=== PATIENT | male | born 1970 | race African-American/Black ===

== ENCOUNTER 2021-03-15 10:42 | Emergency (ER) | payer SELFPAY ==
[~2021-03-15] VITALS: Ht 182.9 cm; Wt 108.9 kg
--- NOTE | 2021-03-15 11:00 | NUR ---
THE PATIENT FROM HOME AND BIBS FOR C/O HEADACHE SINCE THIS AM AND FEELING DIZZY EARLIER. RATES PAIN 6/10. IN ROOM AIR AND DENIES SOB. RESPIRATION REGULAR AND UNLABORED. ATTACHED TO THE MONITOR. WILL CONTINUE TO MONITOR THE PATIENT.
[2021-03-15] MEDS ORDERED: CETI-90 PO (11:09)
[2021-03-15] MEDS ORDERED: AZIT250T PO (11:09)
--- NOTE | 2021-03-15 11:21 | NUR ---
Patient discharged to home in stable condition. Written and verbal after care instructions given. Patient verbalizes understanding of instruction. Left ER in stable condition.
[2021-03-15 11:22] VITALS: BP 141/88
== END 2021-03-15 11:22 | disposition home or self-care (01) ==
LOC: ER 10:48
DX: J32.9 Chronic sinusitis, unspecified (principal); R51.9 Headache, unspecified

== ENCOUNTER 2023-12-06 04:44 | Emergency (ER) | payer OTHER ==
[~2023-12-06] VITALS: Ht 188 cm; Wt 90.7 kg
[~2023-12-06 04:44] MED LIST: AZIT250T PO; CETI-90 PO
[2023-12-06] MEDS: IBUPROFEN 400 MG TABLET PO ONE (05:09)
[2023-12-06] MEDS ORDERED: CYCLOBENZAPRINE 10 MG TABLET ONE (05:09)
[2023-12-06] MEDS: CYCLOBENZAPRINE 10 MG TABLET PO ONE (05:09)
[2023-12-06] MEDS ORDERED: IBUPROFEN 400 MG TABLET ONE (05:09)
[2023-12-06] MEDS ORDERED: CYCL5TAB PO (05:11)
[2023-12-06] MEDS ORDERED: IBUP-1957 PO (05:11)
[2023-12-06 05:20] VITALS: BP 133/101; TEMP 98; O2SAT 98
== END 2023-12-06 05:20 | disposition home or self-care (01) ==
LOC: ER 04:46
DX: M54.50 Low back pain, unspecified (principal)

== ENCOUNTER 2024-01-22 04:12 | Emergency (ER) | payer OTHER ==
[~2024-01-22] VITALS: Ht 182.9 cm; Wt 108.9 kg
[~2024-01-22 04:12] MED LIST changes: +CYCL5TAB PO; +IBUP-1957 PO
[2024-01-22] MEDS ORDERED: PRED50TA PO (05:39)
[2024-01-22] MEDS ORDERED: predniSONE 20 MG TABLET ONE (05:54)
[2024-01-22] MEDS ORDERED: IBUPROFEN 400 MG TABLET ONE (05:55)
[2024-01-22] MEDS: predniSONE 50 MG TABLET PO ONE (06:00)
[2024-01-22] MEDS: IBUPROFEN 400 MG TABLET PO ONE (06:00)
[2024-01-22 06:23] VITALS: BP 136/89; TEMP 98; O2SAT 98
== END 2024-01-22 06:23 | disposition home or self-care (01) ==
LOC: ER 04:14
DX: S83.8X1A Sprain of other specified parts of right knee, initial encounter (principal); Z79.899 Other long term (current) drug therapy; X50.1XXA Overexertion from prolonged static or awkward postures, initial encounter; Y93.89 Activity, other specified; Y92.89 Other specified places as the place of occurrence of the external cause; Y99.8 Other external cause status
CPT/HCPCS: 99284; 73700; J7512

== ENCOUNTER 2024-10-19 19:00 | Emergency (ER) | payer OTHER ==
[~2024-10-19 19:00] MED LIST changes: +PRED50TA PO
== END 2024-10-19 20:41 | disposition home or self-care (01) ==
LOC: ER 19:03
DX: Z53.21 Procedure and treatment not carried out due to patient leaving prior to being seen by health care provider (principal)

== ENCOUNTER 2025-06-05 04:06 | Emergency (ER) | payer OTHER ==
[~2025-06-05] VITALS: Ht 182.9 cm; Wt 122.5 kg
[2025-06-05 05:27] LABS: PLATELET COUNT (AUTO) 348 K/uL (150-450); RED BLOOD CELL COUNT(AUTO) 4.22 MIL/uL (4.5-6.0); RED CELL DISTRIBUTION WIDTH 12.6 % (11.5-15.0); WHITE BLOOD COUNT (AUTO) 6.8 K/uL (4.3-11.0)
[2025-06-05 05:36] LABS: CALCIUM, SERUM 8.4 mg/dL (8.5-10.1); CREATININE 1.0 mg/dL (0.6-1.3); SODIUM SERUM 138 mmol/L (136-145); UREA NITROGEN, BLOOD 8 mg/dL (7-18)
[2025-06-05 05:49] LABS: ALCOHOL, BLOOD < 3 mg/dL (0-10); ASPARTATE AMINOTRANSFERASE 20 U/L (15-37); NT-PRO BNP 37 pg/mL (0-125); TOTAL PROTEIN, SERUM 7.3 g/dL (6.4-8.2)
[2025-06-05 06:11] LABS: APPEARANCE,URINE CLEAR (CLEAR); BLOOD, URINE NEGATIVE Ery/uL (NEGATIVE); LEUKOCYTE ESTERASE ,URINE NEGATIVE (NEGATIVE); NITRITE, URINE NEGATIVE (NEGATIVE); UGLUCOSE NEGATIVE (NEGATIVE)
[2025-06-05 06:13] LABS: AMPHETAMINE, URINE NEGATIVE (NEGATIVE); BARBITURATE, URINE NEGATIVE (NEGATIVE); BENZODIAZEPINE, URINE NEGATIVE (NEGATIVE); CANNABINOID, URINE NEGATIVE (NEGATIVE); COCCAINE, URINE NEGATIVE (NEGATIVE); OPIATE, URINE NEGATIVE (NEGATIVE)
[2025-06-05 06:31] LABS: ADD URINE CULTURE NO; SQUAMOUS EPITHELIAL CELL,UR 0-2 /HPF (None Seen)
[2025-06-05] MEDS ORDERED: LIDOCAINE VISCOUS 2% UD 15 ML UDC ONE (06:56)
[2025-06-05] MEDS ORDERED: MAG HYDROX/AL HYDROX/SIMETH 30 ML UDC ONE (06:56)
[2025-06-05] MEDS: LIDOCAINE VISCOUS 2% UD 15 ML UDC MM ONE (07:18)
[2025-06-05] MEDS: MAG HYDROX/AL HYDROX/SIMETH 30 ML UDC PO ONE (07:19)
[2025-06-05] MEDS ORDERED: OMEP20TA20 PO (07:47)
[2025-06-05 07:57] VITALS: BP 136/89; TEMP 98.8; O2SAT 98
== END 2025-06-05 07:58 | disposition home or self-care (01) ==
LOC: ER 04:13
DX: K59.00 Constipation, unspecified (principal); R10.13 Epigastric pain; R07.9 Chest pain, unspecified; R06.02 Shortness of breath; Z79.1 Long term (current) use of non-steroidal anti-inflammatories (NSAID); Z79.52 Long term (current) use of systemic steroids; Z86.79 Personal history of other diseases of the circulatory system; Z79.899 Other long term (current) drug therapy; Z87.09 Personal history of other diseases of the respiratory system
CPT/HCPCS: 36415; 71045-TC; 80053-TC; 81001; 83690-TC; 83880; 84484-TC; 85025-TC; G0480